=== PATIENT | female | born 1940 | race Caucasian/White ===

== ENCOUNTER → 2016-07-09 | Outpatient (CLI) | payer OTHER, BC ==
[~2016-07-09] MED LIST: ALBUAER2 INH; ASPI81TA28 PO; CLB/200 PO; CLB200 PO; CYCL10TA6 PO; HYDR-4383 PO; HYDR-5688 PO; KETO0.0216 OPL; LORA-741 PO; ONDA8TAB6 PO; OXGN; POTA8CAP6 PO; PRDFOPS OPR; SNK PO; SYMIN/8045 INH; TRIA37.5 PO; VGMOPS OPL
--- NOTE | 2016-07-09 18:29 | DIAGNOSTIC IMAGING REPORT ---
WHOLE BODY BONE SCAN HISTORY: Abnormal MRI. Pain. M80.022A,M75.50M80.022A,M75.50 RADIOTRACER: 25.4 mCi Tc-99m MDP STUDY/IMAGES: Planar anterior and posterior whole body imaging was performed 3 hours following the intravenous administration of radiotracer. COMPARISON: None. FINDINGS: Markedly increase in signal about the left shoulder including glenoid and humeral head and metaphyseal region. This is nonspecific. Increased scattered signal throughout the mid thoracic spine, low lumbar spine, as well as knees bilaterally. This is considered secondary to degenerative and or postoperative change. Minimal scattered degenerative activity of the wrists and ankles. IMPRESSION: 1. Considerable increase in activity about the left shoulder including humeral head, humeral neck, and most likely components of the glenoid. 2. This is nonspecific, although a variety of neoplastic and degenerative etiologies may be considered. 3. Mild scattered degenerative activity throughout the remaining components of the axial and appendicular skeleton Electronically signed by: Abraham Castro M.D. 07/09/2016 6:27 PM Dictated Date/Time: 07/09/2016 6:24 PM
== END | disposition home or self-care (01) ==
LOC: C.NUCL 14:03
PROVIDERS: ATTEND Physician Assistant
DX: M80.022A Age-related osteoporosis with current pathological fracture, left humerus, initial encounter for fracture (principal); M75.50 Bursitis of unspecified shoulder

== ENCOUNTER 2016-12-25 07:45 | Inpatient (IN) | payer OTHER, BC ==
[2016-12-14 10:45] VITALS: BMI 42.0
--- NOTE | 2016-12-14 11:27 | PAT Medication Instructions ---
Service Date Dec 14, 2016. Current Home Medication List Budesonide/Formoterol Fumarate (Symbicort 80/4.5 Inhaler), 1 PUFFS INH HS PRN for Shortness of Breath Celecoxib (CeleBREX), 200 MG PO BID Cyclobenzaprine Hcl (Flexeril), 10 MG PO PRN Home O2 Therapy (Oxygen), 2 LITERS NA HS PRN for PRN Hydrocodone/Acetaminophen ([place] 10/325 Tab), 1 TAB PO TID PRN for N Lorazepam (Ativan), 0.5 MG PO BID PRN for claim review medical director Instructions For Your Scheduled Surgery - Check with surgeon for instructions: Celecoxib (CeleBREX), 200 MG PO BID - Hold the following medications the morning of surgery: Cyclobenzaprine Hcl (Flexeril), 10 MG PO PRN - Take the following medications the morning of surgery with a sip of water: Hydrocodone/Acetaminophen ([place] 10/325 Tab), 1 TAB PO TID PRN for N (okay to take up to 4 hours prior to surgery if needed) Lorazepam (Ativan), 0.5 MG PO BID PRN for RN (if needed) Budesonide/Formoterol Fumarate (Symbicort 80/4.5 Inhaler), 1 PUFFS INH HS PRN for Shortness of Breath (if needed) - Take the following medications as scheduled the night before surgery: Hydrocodone/Acetaminophen ([place] 10/325 Tab), 1 TAB PO TID PRN for N (if needed) Lorazepam (Ativan), 0.5 MG PO BID PRN for RN (if needed) Cyclobenzaprine Hcl (Flexeril), 10 MG PO PRN (if needed) Budesonide/Formoterol Fumarate (Symbicort 80/4.5 Inhaler), 1 PUFFS INH HS PRN for Shortness of Breath (if needed) If you have any questions please call us at [phone] or [phone] or [phone]
[2016-12-14 12:18] LABS: BASO % 0.2 %; BASO ABS # 0.01 K/uL (0-0.2); COMPLETE YES; EOS % 1.2 %; HEMATOCRIT 42.7 % (37-47); IG% 0.3 %; LYMPH % 18.3 %; LYMPH ABS # 1.21 K/uL (1.2-3.4); MEAN CELL VOLUME 93.8 fL (80-100); MEAN CORPUSCULAR HEMOGLOBIN 32.1 pg (25-34); MEAN CORPUSCULAR HGB CONC 34.2 g/dl (32-36); MEAN PLATELET VOLUME 9.8 fL (7.4-10.4); PLATELET COUNT 171 K/uL (130-400); RED BLOOD COUNT 4.55 M/uL (4.2-5.4)
--- NOTE | 2016-12-14 12:19 | DIAGNOSTIC IMAGING REPORT ---
CHEST PREADMISSION(PA/LAT) HISTORY: 76 years-old Female PAT preoperative exam. No acute chest complaints. COMPARISON: Chest radiograph 02/09/2014 TECHNIQUE: PA and lateral views of the chest FINDINGS: Cardiac mediastinal and hilar silhouettes are within normal limits. Mild biapical pleural-parenchymal scarring. Subsegmental left basilar opacities suggest atelectasis, unchanged. No pneumothorax, pleural effusion or focal airspace consolidation. Atherosclerosis of the aorta. Surgical clips are seen within the region of the epigastrium. Multilevel endplate spurring of the spine. IMPRESSION: No acute cardiopulmonary process. The above report was generated using voice recognition software. It may contain grammatical, syntax or spelling errors. Electronically signed by: Arnol Marte M.D. 12/14/2016 12:18 PM Dictated Date/Time: 12/14/2016 12:17 PM
[2016-12-14 12:24] LABS: ESTIMATED AVERAGE GLUCOSE 128 mg/dl; HA1C FLAG Normal (Normal)
[2016-12-14 12:25] LABS: URINE APPEARANCE CLEAR (CLEAR); URINE BILIRUBIN NEG (NEG); URINE COLOR YELLOW; URINE NITRITE NEG (NEG); URINE SPECIFIC GRAVITY 1.016 (1.000-1.030); UROBILINOGEN NEG (NEG); ZZUR CULT IF INDIC CLEAN CATCH NO
[2016-12-14 12:26] LABS: MANUAL MICROSCOPIC REQUIRED? NO; REVIEW REQ? NO
[2016-12-14 12:27] LABS: INR 0.9 (0.9-1.1)
[2016-12-14 14:07] LABS: BUN/CREATININE RATIO 14.8 (10-20); CALCIUM 8.8 mg/dl (8.5-10.1); CREATININE 0.83 mg/dl (0.60-1.20); POTASSIUM 3.7 mmol/L (3.5-5.1)
--- NOTE | 2016-12-21 11:11 | History and Physical ---
History & Physical Date Dec 21, 2016. Chief Complaint Left shoulder pain History of Present Illness The patient is a 76 year old female with complaints of left shoulder. She states she had injections in the past that did not seem to work. We discussed treatment options and she would like to proceed with a left shoulder TSA verse reverse TSA. Past Medical/Surgical History Medical Problems: (1) blood clot (2) Cataract (3) COPD (chronic obstructive pulmonary disease) (4) COPD (chronic obstructive pulmonary disease) (5) DVT (deep venous thrombosis) (6) PE (pulmonary embolism) Surgical Problems: (1) H/O: knee surgery (2) Knee joint replacement status Additional History Hepatic Disease: No Endocrine Disorder: No Kidney Disease: No Hypertension: No Heart Disease: No Bleeding Tendencies: No Infectious Diseases: No Allergies Coded Allergies: Diazepam (Verified Allergy, Intermediate, HIVES, 12/14/16) Oxycodone (Verified Adverse Reaction, Unknown, DROPPED O2 SATS, 12/14/16) Home Medications Scheduled Celecoxib (CeleBREX), 200 MG PO BID Cyclobenzaprine Hcl (Flexeril), 10 MG PO PRN Scheduled PRN Budesonide/Formoterol Fumarate (Symbicort 80/4.5 Inhaler), 1 PUFFS INH HS PRN for Shortness of Breath Home O2 Therapy (Oxygen), 2 LITERS NA HS PRN for PRN Hydrocodone/Acetaminophen ([place] 10/325 Tab), 1 TAB PO TID PRN for N Lorazepam (Ativan), 0.5 MG PO BID PRN for RN Physical Examination Skin: warm/dry, no rash Eyes: normal inspection, EOMI ENT: normal ENT inspection Head: normocephalic, atraumatic Neck: supple, no adenopathy Respiratory/Chest: lungs clear, normal breath sounds Cardiovascular: regular rate, rhythm, no murmur Abdomen / GI: normal bowel sounds, non tender Extremities: normal inspection, + pertinent finding (decreased ROM in all directions secondary to pain) Neurologic/Psych: no motor/sensory deficits, alert, oriented x 3 Diagnosis Primary osteoarthritis of left shoulder Plan of Treatment Patient is scheduled for a left shoulder TSA verse reverse TSA. She has tried conservative therapy with no relief. Risks and benefits were discussed with the patient. The patient understands the risks and benefits. All questions were answered to their satisfaction.
[~2016-12-25] VITALS: Ht 147.3 cm; Wt 91.4 kg
[2016-12-25] VITALS (8 sets, daily range): BP systolic 99–155; BP diastolic 61–81; PULSE 55–84; TEMP 36.4–36.6; O2SAT 92–98; Ht 147.3 cm; Wt 91.4 kg
[~2016-12-25 07:45] MED LIST changes: +ACETAMINOPHEN 500 MG TAB PO SCH; -ALBUAER2 INH; -ASPI81TA28 PO; +BUPIVACAINE/EPINEPHRINE 0.5% MPF 1:200,000 30 ML VIAL ONE; +CEFAZOLIN 2000MG IV PUSH 10 ML IV SCH; -CLB200 PO; +CeleBREX 200 MG CAP PO SCH; +DEXAMETHASONE 4 MG TAB PO SCH; +DEXAMETHASONE SOD INJ 4 MG/ML VIAL ONE; +FAMOTIDINE 20 MG TAB PO SCH; +GABAPENTIN 300 MG CAP PO SCH; -HYDR-5688 PO; -KETO0.0216 OPL; +LACTATED RINGER'S 1000ML 1,000 ML IV SCH; +LACTATED RINGER'S 1000ML IV SCH; -ONDA8TAB6 PO; -POTA8CAP6 PO; -PRDFOPS OPR; +ROPIVACAINE 5MG/ML 30 ML 150 MG, BUPIVACAINE 0.5% MPF INJ 30 ML, EpINEphrine HCL INJ 0.... INFIL SCH; -SNK PO; +SODIUM CHLORIDE 0.9% INJ 10 ML VIAL ONE; -TRIA37.5 PO; -VGMOPS OPL
--- NOTE | 2016-12-25 09:18 | History & Physical Bridge Note ---
H&P Re-Evaluation Bridge Note: I have examined the patient, reviewed the History & Physical and in the interval since the performance of the History & Physical I have noted the following changes of clinical significance: No changes noted
[2016-12-25] MEDS ORDERED: MIDAZOLAM HCL 1 MG/ML 2ML VIAL ONE (09:20)
[2016-12-25] MEDS ORDERED: FENTANYL CITRATE INJ 50 MCG/1 ML 2 ML VIAL ONE (09:20)
[2016-12-25] MEDS ORDERED: PROMETHAZINE HCL INJ 6.25 MG in SODIUM CHLORIDE 0.9% 50ML 50 ML IV PRN (10:00)
[2016-12-25] MEDS ORDERED: FENTANYL CITRATE INJ 50 MCG/1 ML 2 ML VIAL IV PRN (10:00)
[2016-12-25] MEDS ORDERED: EpHEDrine SULFATE INJ 50 MG/ML AMP IV PRN (10:00)
[2016-12-25] MEDS ORDERED: ONDANSETRON INJ 2 MG/ML 2 ML VIAL IV PRN ×2 (10:00→13:30)
[2016-12-25] MEDS ORDERED: ATROPINE SULFATE 0.1 MG/ML 5ML SYR IV PRN (10:00)
[2016-12-25] MEDS ORDERED: THROMBIN FOR SOLN 20000 UNIT KIT ONE (10:01)
[2016-12-25] MEDS ORDERED: ORTHO JOINT ANESTHETIC ONE (10:01)
[2016-12-25] MEDS ORDERED: POVIDONE-IODINE OP SOLN 30 ML BTL ONE (10:01)
[2016-12-25] MEDS ORDERED: VANCOMYCIN HCL 1000MG/20ML VIAL ONE (10:02)
[2016-12-25] MEDS ORDERED: BACITRACIN 50000 UNIT VIAL ONE (10:02)
[2016-12-25] MEDS ORDERED: PROPOFOL IV EMULSION 10 MG/ML 20 ML VIAL IV ONE (12:14)
[2016-12-25] MEDS ORDERED: PHENYLEPHRINE 100MCG/ML 5ML SYR ONE ×2 (12:14→12:54)
[2016-12-25] MEDS ORDERED: LIDOCAINE HCL 2% 2 ML VIAL (20MG/ML) ONE (12:14)
[2016-12-25] MEDS ORDERED: EpHEDrine SULFATE 50MG/5ML SYR ONE (12:18)
[2016-12-25] MEDS ORDERED: NEOSTIGMINE METHYLSULFATE 5 MG/5 ML SYR ONE (12:54)
[2016-12-25] MEDS ORDERED: GLYCOPYRROLATE INJ 0.2 MG/ML VIAL ONE (12:54)
[2016-12-25] MEDS ORDERED: ONDANSETRON INJ 2 MG/ML 2 ML VIAL ONE (12:54)
--- NOTE | 2016-12-25 13:16 | [facility] Operative Report ---
Operative Report Operative Date Dec 25, 2016. Pre-Operative Diagnosis Primary osteoarthritis of left shoulder Post-Operative Diagnosis same as pre-operative plus tearing of the long head of the biceps Procedure(s) Performed Left Total reverse Shoulder arthroplasty with bicep tendodesis Surgeon Dr. Pavel Watson Audio Technician Surgeon(s) CHILANGO Ren Estimated Blood Loss 50ml Findings As above Specimens Specimen A: Left humeral head Drains one Hemovac Anesthesia Gen., interscalene block Complication(s) None Disposition Recovery Room / PACU Indications 76-year-old female long-standing arthritis left shoulder. She is [id number] in the glenohumeral joint. She's fill conservative measures including injection and anti-inflammatories and rehabilitation. She was to proceed with left total shoulder arthroplasty. Description of Procedure Risks, benefits and alternatives to surgery including, but not limited to, infection DVT, pain, stiffness, need for revision surgery, failure to relieve all symptoms, damage to blood vessels, damage to nerves, risk of anesthesia were discussed with the patient and they wished to proceed. The patient was identified. Laterality was confirmed and marked. The patient received a preoperative antibiotic as well as an interscalene block. They were transferred to the operating room and placed in the supine position and induced into general endotracheal anesthesia per the anesthesia staff. The patient was then safely transferred to a slight beachchair position. The patient was secured in the Tenet positioner. All pressure points were well padded. The shoulder was prepped and draped in the usual sterile manner with ChloraPrep. The arm was secured in the Spider keane. I made a longitudinal incision just lateral to the coracoid, sharply incising through the skin and utilizing Bovie electrocautery to achieve hemostasis. I identified the cephalic vein and mobilized it laterally with the deltoid. I mobilize the pectoralis and mobilize this medially releasing a small portion of the upper border of the pec tendon to improve visualization. I then identified and mobilized the conjoined tendon. I identified the long head of the biceps tendon. The long head of the biceps tendon had significant tendinosis and tearing proximally. I performed an in situ biceps tenodesis with interrupted # 1 Ethibond suture. I then released the subscapularis. I pinned into place my humeral head version cutting guide and made my humeral head resection. She had significant tendinosis and tearing of the supraspinatus and given her age of [age] years old I felt that she be best served with a reverse total shoulder arthroplasty. I then sequentially reamed and sequentially broached up to a size 11. I then placed the trial humeral stem into the shoulder. I placed retractors around the glenoid and then excised the residual biceps tendon stump and glenoid labrum. I elevated the soft tissues and the inferior aspect of the glenoid to improve exposure and released tissues circumferentially. I then positioned and drilled for the central post for the glenoid plate. The glenoid plate was bone grafted with bone taken from the humeral head. I impacted the definitive glenoid plate into position and then placed a total of 4 compression screws that were then locked into position with locking caps. I then placed the size 38 glenosphere onto the plate and secured it with a locking screw. I then removed the trial humeral stem and placed the definitive humeral stem. I trialed off of the definitive stem. There was good fit with a plus [0) humeral tray and a plus 0 humeral liner. The definitive components used were [employer] Equinox: Humeral press-fit stem: 11 Standard glenoid plate Glenosphere: 38 Humeral tray:+ 0 Humeral polyethylene liner: + 0 I thoroughly irrigated the wound. Deep tissues were anesthetized with an orthomix solution. I then locked my definitive humeral tray into position with a torque limiting screw. I then impacted the definitive humeral polyethylene liner into position. I then reduced the shoulder. There was good range of motion and good stability after the reduction. The wound was again thoroughly irrigated and a Betadine soak was performed. A deep drain was placed. The deltopectoral interval was closed with interrupted #1 Ethibond suture. The subcutaneous tissue was closed with interrupted 2-0 Vicryl suture. The skin was closed with lian. A sterile dressing was applied. A sling was placed. All needle and sponge counts were correct at the end of the procedure. The patient was transferred to the PACU in stable condition without apparent complication. The PA-C was necessary for assistance with procedure for assistance in positioning, prepping, draping, retraction and closure. I attest to the content of the Intraoperative Record and any orders documented therein. Any exceptions are noted below.
[2016-12-25] MEDS ORDERED: ZOLPIDEM TARTRATE 5 MG TAB PO PRN (13:30)
[2016-12-25] MEDS ORDERED: SOD PHOSPHATE/SOD BIPHOSPHATE ENEMA 132 ML BTL PR PRN (13:30)
[2016-12-25] MEDS ORDERED: HYDROCODONE/ACETAMOPHEN 5/325MG TAB PO PRN (13:30)
[2016-12-25] MEDS ORDERED: ALUMINUM/MAGNESIUM SUSP 30 ML UDC PO PRN (13:30)
[2016-12-25] MEDS ORDERED: CYCLOBENZAPRINE HCL 10 MG TAB PO SCH (13:30)
[2016-12-25] MEDS ORDERED: MAGNESIUM HYDROXIDE SUSP 30 ML UDC PO PRN (13:30)
[2016-12-25] MEDS ORDERED: BUDESONIDE/FORMOTEROL FUMARATE 80/4.5 60 PUFFS/INHALER INH PRN (13:30)
[2016-12-25] MEDS ORDERED: BISACODYL 10 MG SUPP PR PRN (13:30)
[2016-12-25] MEDS ORDERED: LORAZEPAM 0.5 MG TAB PO PRN (13:30)
--- NOTE | 2016-12-25 13:52 | Anesthesiology Progress Note ---
Anesthesia Post Op Note Date & Time Dec 25, 2016 at 13:51 Vital Signs Pain Intensity: 0 Vital Signs Past 12 Hours Date Time Temp Pulse Resp B/P (MAP) Pulse Ox O2 Delivery O2 Flow Rate FiO2 12/25/16 13:46 70 16 12/25/16 13:46 69 16 129/68 98 12/25/16 13:41 76 21 12/25/16 13:41 76 21 131/66 97 12/25/16 13:36 79 17 12/25/16 13:36 79 17 129/66 97 12/25/16 13:32 142/66 12/25/16 13:31 80 18 97 12/25/16 13:31 81 18 12/25/16 13:27 133/64 12/25/16 13:26 17 12/25/16 13:26 36.1 83 16 133/64 (77) 97 Oxymask 12/25/16 13:26 83 17 12/25/16 08:42 36.5 76 18 155/78 95 Room Air Notes Mental Status: alert / awake / arousable, participated in evaluation Pt Amnestic to Procedure: Yes Nausea / Vomiting: adequately controlled Pain: adequately controlled Airway Patency, RR, SpO2: stable & adequate BP & HR: stable & adequate Hydration State: stable & adequate Anesthetic Complications: no major complications apparent block working well in pacu
--- NOTE | 2016-12-25 14:19 | DIAGNOSTIC IMAGING REPORT ---
L SHOULDER MIN 2 VIEWS ROUTINE CLINICAL HISTORY: Post shoulder surgery postoperative evaluation COMPARISON: None. DISCUSSION: Anatomic alignment status post total left shoulder replacement. Good contact between prosthetic and underlying bone. Expected soft tissue postoperative change IMPRESSION: Anatomic alignment status post total left shoulder arthroplasty. The above report was generated using voice recognition software. It may contain grammatical, syntax or spelling errors. Electronically signed by: Abraham Castro M.D. 12/25/2016 2:18 PM Dictated Date/Time: 12/25/2016 2:17 PM
[2016-12-25] MEDS ORDERED: NURSING VERBAL MED ORDER ONE ×2 (16:15→22:00)
[2016-12-25] MEDS: ACETAMINOPHEN 500 MG TAB PO SCH (16:26)
[2016-12-25] MEDS ORDERED: INFLUENZA VACCINE HIGH DOSE 65+ 0.5 ML SYR IM. ONE (17:00)
[2016-12-25] MEDS ORDERED: INFLUENZA ADMINISTRATION CHARGE ONE (17:00)
[2016-12-25] MEDS: FERROUS GLUCONATE 324 MG TAB PO SCH (18:59)
[2016-12-25] MEDS: POTASSIUM CHLORIDE INJ 10 MEQ in SODIUM CHLORIDE 0.9% 1000ML 1,000 ML IV SCH (18:59)
[2016-12-25] MEDS: CEFAZOLIN IV 2,000 MG in SYRINGE 0 ML IV SCH (19:41)
[2016-12-25] MEDS ORDERED: CEFAZOLIN IV 2,000 MG in DEXTROSE 5% 50ML 50 ML IV SCH (20:00)
[2016-12-25] MEDS: SENNA 8.6 MG TAB PO SCH (21:00)
[2016-12-25] MEDS: DOCUSATE SODIUM 100 MG CAP PO SCH (21:00)
[2016-12-26] VITALS (8 sets, daily range): BP systolic 111–154; BP diastolic 65–76; PULSE 77–84; TEMP 36.4–37.1; O2SAT 90–97
[2016-12-26] MEDS: HYDROmorphone INJ 0.5 MG/0.5 ML SYR IV PRN ×2 (00:19→05:31)
[2016-12-26] MEDS: ACETAMINOPHEN 500 MG TAB PO SCH ×2 (00:23→08:57)
[2016-12-26] MEDS: POTASSIUM CHLORIDE INJ 10 MEQ in SODIUM CHLORIDE 0.9% 1000ML 1,000 ML IV SCH (03:46)
[2016-12-26] MEDS: CEFAZOLIN IV 2,000 MG in SYRINGE 0 ML IV SCH (03:47)
[2016-12-26 06:12] LABS: MEAN CELL VOLUME 92.5 fL (80-100); MEAN CORPUSCULAR HEMOGLOBIN 31.5 pg (25-34); MEAN CORPUSCULAR HGB CONC 34.1 g/dl (32-36); MEAN PLATELET VOLUME 9.9 fL (7.4-10.4); PLATELET COUNT 170 K/uL (130-400); WHITE BLOOD COUNT 13.54 K/uL (4.8-10.8)
[2016-12-26 06:28] LABS: PROTHROMBIN TIME (PATIENT) 10.2 SECONDS (9.0-12.0)
[2016-12-26 06:54] LABS: BUN/CREATININE RATIO 16.8 (10-20); CREATININE 0.79 mg/dl (0.60-1.20); POTASSIUM 4.1 mmol/L (3.5-5.1)
[2016-12-26] MEDS: HYDROCODONE/ACETAMOPHEN 5/325MG TAB PO PRN ×4 (08:09→22:21)
[2016-12-26] MEDS: FERROUS GLUCONATE 324 MG TAB PO SCH ×3 (08:59→17:53)
[2016-12-26] MEDS: PANTOprazole SOD 40 MG TAB PO SCH (09:00)
[2016-12-26] MEDS: DOCUSATE SODIUM 100 MG CAP PO SCH ×2 (09:00→21:00)
[2016-12-26] MEDS: MULTIVITAMIN TAB PO SCH (09:00)
--- NOTE | 2016-12-26 09:19 | Orthopedic Progress Note ---
Orthopedic Progress Note Date of Service Dec 26, 2016. Subjective Post OP Day: 1 Reports: feeling well, Denies: complaints, chest pain, SOB, nausea / vomiting, light headedness Additional Notes: Patient recently had [place]--only had IV meds ordered. Patient and PT stating concerns about going home because in 2 days when the weekdays start she will be at home on her own for > 12 hours at a time. Objective N/V intact, capillary refill less than 2 sec., dressing C/D/I, A&O x3 Left hand fingers are mobile. NV intact. Drain from the shoulder has already been removed. Date Time Temp Pulse Resp B/P (MAP) Pulse Ox O2 Delivery O2 Flow Rate FiO2 12/26/16 07:45 90 Room Air 12/26/16 07:13 37.1 80 16 124/71 (88) 90 Room Air 12/26/16 03:32 36.9 81 17 111/65 (80) 93 Room Air 12/26/16 00:20 Room Air 12/25/16 23:19 36.5 84 17 129/81 (97) 92 Room Air 12/25/16 19:30 36.6 78 16 146/73 (97) 97 Nasal Cannula 2.0 12/25/16 17:26 36.4 66 16 99/61 (74) 95 Nasal Cannula 2.0 12/25/16 16:30 36.4 67 16 117/70 (86) 98 Nasal Cannula 3.0 12/25/16 15:30 36.5 55 14 102/64 (77) 98 Nasal Cannula 3.0 12/25/16 15:20 96 Nasal Cannula 3.0 12/25/16 15:20 Nasal Cannula 3.0 12/25/16 15:00 36.4 71 16 101/63 (76) 95 Nasal Cannula 3.0 12/25/16 14:30 36.4 77 20 107/65 (79) 96 Nasal Cannula 3.0 12/25/16 14:16 111/56 12/25/16 14:13 74 19 89 12/25/16 14:13 73 19 12/25/16 14:11 115/64 12/25/16 14:08 74 17 12/25/16 14:08 74 17 100 12/25/16 14:06 127/88 12/25/16 14:03 71 20 12/25/16 14:03 72 20 93 12/25/16 14:02 64 15 96 12/25/16 14:02 64 15 12/25/16 14:01 102/60 12/25/16 13:57 55 13 97 12/25/16 13:57 55 13 12/25/16 13:56 37.0 64 16 102/60 96 Oxymask 4 12/25/16 13:56 125/52 12/25/16 13:52 67 15 97 12/25/16 13:52 67 15 12/25/16 13:51 129/65 12/25/16 13:47 68 17 97 12/25/16 13:47 68 17 12/25/16 13:46 70 16 12/25/16 13:46 69 16 129/68 98 12/25/16 13:41 76 21 12/25/16 13:41 76 21 131/66 97 12/25/16 13:36 79 17 12/25/16 13:36 79 17 129/66 97 12/25/16 13:32 142/66 12/25/16 13:31 80 18 97 12/25/16 13:31 81 18 12/25/16 13:27 133/64 12/25/16 13:26 17 12/25/16 13:26 36.1 83 16 133/64 (77) 97 Oxymask 10 12/25/16 13:26 83 17 Laboratory Results 24 Hours: Test 12/26/16 05:43 Hematocrit 37.0 % Hemoglobin 12.6 g/dL Prothromb Time International Ratio 1.0 Prothrombin Time 10.2 SECONDS Assessment & Plan Assessment: POD #1 s/p Left Total reverse Shoulder arthroplasty with biceps tenodesis Plan: PT/OT Pain control D/C planning--home with home health vs. [facility] because of concerns of being alone at home. Inhouse Planning Pain Management: Yamile Dunbar Discharge Planning Discharge Planning: uncertain
[2016-12-26] MEDS ORDERED: HYDROmorphone INJ 0.5 MG/0.5 ML SYR IV PRN (09:30)
[2016-12-26] MEDS ORDERED: NURSING VERBAL MED ORDER ONE (10:45)
[2016-12-26] MEDS: SENNA 8.6 MG TAB PO SCH (21:00)
[2016-12-27 05:49] LABS: HEMATOCRIT 34.8 % (37-47); MEAN CELL VOLUME 94.8 fL (80-100); MEAN CORPUSCULAR HEMOGLOBIN 31.3 pg (25-34); MEAN PLATELET VOLUME 9.6 fL (7.4-10.4); PLATELET COUNT 149 K/uL (130-400); RED BLOOD COUNT 3.67 M/uL (4.2-5.4); WHITE BLOOD COUNT 9.47 K/uL (4.8-10.8)
[2016-12-27 06:01] LABS: PROTHROMBIN TIME (PATIENT) 10.8 SECONDS (9.0-12.0)
[2016-12-27 06:13] LABS: BUN/CREATININE RATIO 18.8 (10-20); CALCIUM 7.6 mg/dl (8.5-10.1); CREATININE 0.8 mg/dl (0.60-1.20); POTASSIUM 3.7 mmol/L (3.5-5.1)
[2016-12-27] MEDS: HYDROCODONE/ACETAMOPHEN 5/325MG TAB PO PRN ×2 (07:43→12:08)
[2016-12-27] MEDS: MULTIVITAMIN TAB PO SCH (08:49)
[2016-12-27] MEDS: PANTOprazole SOD 40 MG TAB PO SCH (08:49)
[2016-12-27] MEDS: FERROUS GLUCONATE 324 MG TAB PO SCH ×2 (08:49→12:07)
[2016-12-27] MEDS: DOCUSATE SODIUM 100 MG CAP PO SCH (08:49)
[2016-12-27 08:56] VITALS: BP 167/72; PULSE 94; TEMP 36.7; O2SAT 91
[2016-12-27 09:51] VITALS: BP 119/67; PULSE 94; TEMP 36.7; O2SAT 91
--- NOTE | 2016-12-27 10:05 | Orthopedic Progress Note ---
Orthopedic Progress Note Date of Service Dec 27, 2016. Subjective Post OP Day: 2 Reports: feeling well, pain controlled w PO medications, Denies: complaints, chest pain, SOB, nausea / vomiting, light headedness Objective N/V intact, capillary refill less than 2 sec., dressing C/D/I, A&O x3 LUE fingers are mobile. NV intact LUE. LUE in sling. Date Time Temp Pulse Resp B/P (MAP) Pulse Ox O2 Delivery O2 Flow Rate FiO2 12/27/16 09:51 36.7 94 18 91 Nasal Cannula 12/27/16 08:56 36.7 94 18 167/72 (103) 91 Nasal Cannula 2.0 12/27/16 07:30 Nasal Cannula 2.0 Humidified Oxygen 12/27/16 00:09 Nasal Cannula 2.0 12/26/16 23:00 36.9 84 18 137/68 (91) 97 Nasal Cannula 2.0 12/26/16 21:06 94 Nasal Cannula 2.0 12/26/16 15:45 Room Air 12/26/16 15:08 36.6 81 16 154/74 (100) 92 Room Air 12/26/16 12:56 91 12/26/16 11:51 36.4 77 16 127/76 (93) 93 Room Air Laboratory Results 24 Hours: Test 12/27/16 05:28 Hematocrit 34.8 % Hemoglobin 11.5 g/dL Prothromb Time International Ratio 1.0 Prothrombin Time 10.8 SECONDS Assessment & Plan Assessment: POD #2 s/p Left Total reverse Shoulder arthroplasty with biceps tenodesis Plan: PT/OT Pain control D/C planning--[facility] today Inhouse Planning Pain Management: Yamile Dunbar Discharge Planning Discharge Planning: rehab hospital ([facility] today) Pain Management: Bettina
[2016-12-27] MEDS ORDERED: ONDA8TAB6 PO (10:07)
[2016-12-27] MEDS ORDERED: HYDR-4383 PO (10:07)
[2016-12-27] MEDS ORDERED: ASPI81TA28 PO (10:07)
--- NOTE | 2016-12-27 10:09 | Discharge Instructions ---
Discharge Instructions Date of Service Dec 27, 2016. Admission Reason for Admission: Left Shoulder Pain Discharge Discharge Diagnosis / Problem: left shoulder osteoarthritis Discharge Goals Goal(s): Decrease discomfort, Improve function Activity Recommendations Activity Level: Up Ad Brittnee Therapies: Physical Therapy Weightbearing Status: Left non-weightbearing . Additional Information Patient informed of condition: Yes Advance Directives: Yes DNR: No Level of Care: Acute Rehab Communicable Disease: No Prognosis: Stable [place] Catheter: No Instructions / Follow-Up Instructions / Follow-Up ACTIVITY RECOMMENDATIONS: SELF CARE INSTRUCTIONS AFTER TOTAL SHOULDER ARTHROPLASTY REVERSE A. You may do daily exercises as taught in physical therapy while in hospital. No lifting with the operative arm. B. You are to wear your sling/immobilizer at all times EXCEPT when performing your daily exercises and for hygiene purposes. C. You may perform dry, daily dressing changes. Please keep your incision covered. You may shower 48 hours after surgery. Do not apply soap or any ointment/ lotions directly over incision. Do not soak incision in bath tub/swimming pool. D. You may use ice as needed to operative shoulder. SPECIAL CARE INSTRUCTIONS: VERY IMPORTANT TO READ AND REVIEW A. There are a few signs you need to watch for after you are home. Call [facility] at [phone] if you experience any of the followin. Increased severe shoulder pain. Some pain is expected especially when you exercise. 2. Increased swelling in you shoulder or arm; pain or swelling in either upper extremity. 3. Any fluid drainage from the incision. 4. Shortness of breath or chest pain. B. Please call [facility] at [phone] if you have any questions or concerns about your operation or recovery. C. Call your physician if: 1. Temperature is greater than 101 degrees (F). 2. Pain is not relieved by prescribed pain medications. 3. Increase drainage or redness from incision. 4. Unanswered questions or concerns. FOLLOW UP VISIT: Please call [facility] at [phone] to schedule a follow up appointment with Dr. Watson or his PA in 12-14 days from your surgery date. Current Hospital Diet Patient's current hospital diet: Regular Diet Discharge Diet Recommended Diet: Regular Diet Procedures Procedures Performed: Left Total reverse Shoulder arthroplasty with bicep tendodesis Pending Studies Studies pending at discharge: no Laboratory Results Hemoglobin A1c Test 12/14/16 11:38 Range/Units Estimated Average Glucose 128 mg/dl Hemoglobin A1c 6.1 H 4.5-5.6 % Medical Emergencies . Who to Call and When: Medical Emergencies: If at any time you feel your situation is an emergency, please call 911 immediately. . Non-Emergent Contact Non-Emergency issues call your: Surgeon Call Non-Emergent contact if: temperature is above 101, your pain is not controlled, your pain is worsening, wound has increased drainage, wound has increased redness . . "Provider Documentation" section prepared by Ky Maldonado. . Core Measure Problem Core Measures: None
[2016-12-27 10:27] VITALS: BP 119/67; PULSE 84
--- NOTE | 2016-12-29 10:23 | Discharge Summary ---
Orthopedic Discharge Summary Admission Date/Reason Dec 25, 2016 at 09:10 Left Shoulder Pain. Discharge Date/Disposition Dec 27, 2016 retirement facility Diagnosis Principal Diagnosis: S/P Left Reverse Total shoulder arthroplasty with biceps tenodesis Medication Reconciliation as per discharge instructions Admission Physical Exam As per Admitting History & Physical. Hospital Course POD#1 patient was feeling well and pain was controlled with PO medications. There were concerns about her going home with home health due to the fact that she would be home alone for > 12 hours. She will be scheduled to go to a custodial facility tomorrow. POD #2 she was doing well and was later discharge to SNF. Discharge Instructions Please refer to the electronic Patient Visit Report (Discharge Instructions) for additional information.
== END 2016-12-27 13:45 | DRG 483 ==
LOC: C.ACU 07:45 → C.3E 09:10 → ENRESERV 14:05
PROVIDERS: ADMIT Orthopaedic Surgery; ATTEND Orthopaedic Surgery
PROC: 0RRK00Z Replacement of Left Shoulder Joint with Reverse Ball and Socket Synthetic Substitute, Open Approach (ICD-10-PCS; principal; 2016-12-25 10:30)
PROC: 0KQ80ZZ Repair Left Upper Arm Muscle, Open Approach (ICD-10-PCS; principal; 2016-12-25 10:30)
DX: M19.012 Primary osteoarthritis, left shoulder (principal); S46.212A Strain of muscle, fascia and tendon of other parts of biceps, left arm, initial encounter; J44.9 Chronic obstructive pulmonary disease, unspecified; Z79.899 Other long term (current) drug therapy; Z86.718 Personal history of other venous thrombosis and embolism; Z86.711 Personal history of pulmonary embolism; X58.XXXA Exposure to other specified factors, initial encounter